=== PATIENT | male | born 1960 | race American Indian/Alaskan Native ===

== ENCOUNTER 2016-12-29 09:31 | Outpatient (CLI) | payer BC ==
--- NOTE | 2016-12-29 12:47 | Mammography Report ---
BILATERAL DIGITAL DIAGNOSTIC MAMMOGRAM with CAD and BILATERAL BREAST ULTRASOUND: 12/29/16 CLINICAL: 56-year-old male with a right breast lump. COMPARISON:09/10/08 FINDINGS: The breasts are almost entirely fatty.Moderate right subareolar fibroglandular densities which have increased since the prior mammogram and minimal left subareolar fibroglandular densities which have increased slightly since the prior mammogram. Ultrasound of the retroareolar areas of both breasts was performed and demonstrated no mass, cyst or shadowing. Moderate right benign-appearing retroareolar fibroglandular structures and mild left benign-appearing retroareolar fibroglandular structures. IMPRESSION: Moderate right benign gynecomastia with a nodular pattern and minimal left benign gynecomastia with an increase volume of bilateral fibroglandular structures since the last exam. BI-RADS CATEGORY: 2 -- Benign RECOMMENDATION: Clinical follow-up. COMMENT: Patient follow-up letters are generated by our [employer] application.
== END 2016-12-29 09:32 | disposition home or self-care (01) ==
LOC: SPVWC 09:31
PROVIDERS: ATTEND Internal Medicine Hematology & Oncology
DX: N63 Unspecified lump in breast (principal); N62 Hypertrophy of breast
CPT/HCPCS: 76642; G0204; 77066